=== PATIENT | male | born 1965 | race African-American/Black ===

== ENCOUNTER 2016-11-13 15:31 | Inpatient (IN) | payer OTHER ==
[2016-11-13 17:11] VITALS: BMI 23.6
--- NOTE | 2016-11-13 18:57 | HP ---
CIWA Score - CIWA Score Nausea/Vomitin-Mild Nausea/No Vomiting Muscle Tremors: 4-Moderate,w/Arms Extend Anxiety: 4-Mod. Anxious/Guarded Agitation: 3 Paroxysmal Sweats: 1-Minimal Palms Moist Orientation: 0-Oriented Tacttile Disturbances: 0-None Auditory Disturbances: 0-None Visual Disturbances: 0-None Headache: 0-None Present CIWA-Ar Total Score: 13 Admission ROS [facility] - HPI Chief Complaint: WITHDRAWAL SX Allergies/Adverse Reactions: Allergies Allergy/AdvReac Type Severity Reaction Status Date / Time Fish Containing Products Allergy Intermediate Hives Verified 11/13/16 17:39 No Known Drug Allergies Allergy Verified 11/13/16 18:14 shellfish Allergy Severe Hives Uncoded 11/13/16 17:39 NUTS Allergy Intermediate Hives Uncoded 11/13/16 17:39 History of Present Illness: 51 YEARS OLD MALE WITH LONG HISTORY OF ALCOHOL NICOTINE DEPENDENCE DENIES MEDICAL ISSUE HAS DEPRESSION IS ADMITTED TO DETOX Exam Limitations: No Limitations - Ebola screening Have you traveled outside of the country in the last 21 days: No Have you had contact with anyone from an Ebola affected area: No Have you been sick,other than usual withdrawal symptoms: No Do you have a fever: No - Review of Systems Constitutional: Chills, Loss of Appetite, Changes in sleep, Unintentional Wgt. Loss, Unexplained wgt Loss EENT: reports: No Symptoms Reported Respiratory: reports: No Symptoms reported Cardiac: reports: No Symptoms Reported GI: reports: No Symptoms Reported, Nausea, Poor Appetite, Poor Fluid Intake, Abdominal cramping : reports: No Symptoms Reported Musculoskeletal: reports: Back Pain, Joint Pain, Muscle Pain, Neck Pain Integumentary: reports: No Symptoms Reported Neuro: reports: Tremors Endocrine: reports: No Symptoms Reported Hematology: reports: No Symptoms Reported Psychiatric: reports: Judgement Intact, Orientated x3, Depressed Other Systems: Reviewed and Negative Patient History - Patient Medical History Hx Anemia: No Hx Asthma: No Hx Chronic Obstructive Pulmonary Disease (COPD): No Hx Cancer: No Hx Cardiac Disorders: No Hx Congestive Heart Failure: No Hx Hypertension: No Hx Hypercholesterolemia: No Hx Pacemaker: No HX Cerebrovascular Accident: No Hx Seizures: No Hx Dementia: No Hx Diabetes: No Hx Gastrointestinal Disorders: No Hx Liver Disease: Yes Hx Genitourinary Disorders: No Hx Sexually Transmitted Disorders: No Hx Renal Disease (ESRD): No Hx Thyroid Disease: No Hx Human Immunodeficiency Virus (HIV): No Hx Hepatitis C: Yes (needs treatment) Hx Depression: Yes Hx Suicide Attempt: No Hx Bipolar Disorder: No Hx Schizophrenia: No - Patient Surgical History Past Surgical History: Yes Hx Neurologic Surgery: No Hx Cataract Extraction: No Hx Cardiac Surgery: No Hx Lung Surgery: No Hx Breast Surgery: No Hx Breast Biopsy: No Hx Abdominal Surgery: No Hx Appendectomy: No Hx Cholecystectomy: Yes (2011) Hx Genitourinary Surgery: No Hx Orthopedic Surgery: No Other Surgical History: INGUINAL HERNIA REPAIR- 2011 Anesthesia Reaction: No - PPD History Previous Implant?: Yes Documented Results: Negative w/proof Implanted On Prior [facility] Admission?: Yes Date: 08/12/16 Results: 0 mm PPD to be Administered?: No - Smoking Cessation Smoking history: Current every day smoker Have you smoked in the past 12 months: Yes Aproximately how many cigarettes per day: 40 Cigars Per Day: 0 Hx Chewing Tobacco Use: No Initiated information on smoking cessation: Yes 'Breaking Loose' booklet given: 11/13/16 - Substance & Tx. History Hx Alcohol Use: Yes Hx Substance Use: Yes Substance Use Type: Alcohol, Cocaine, Opiates Hx Substance Use Treatment: Yes (08/10-08/15/16 [place] - Substances Abused Alcohol Route: Oral Frequency: Daily Amount used: vodka 2 pints Age of first use: 17 Date of Last Use: 11/12/16 Cocaine Route: Smoking Frequency: Daily Amount used: $100 Age of first use: 17 Date of Last Use: 11/13/16 Family Disease History - Family Disease History Family Disease History: Other: Father (alcohlic) Admission Physical Exam S - Vital Signs Vital Signs: Vital Signs - 24 hr 11/13/16 17:04 Temperature 96.1 F L Pulse Rate 63 Respiratory 18 Rate Blood Pressure 114/68 - Physical General Appearance: Yes: Appropriately Dressed, Mild Distress, Thin, Tremorous, Irritable, Sweating, Anxious HEENTM: Yes: Hearing grossly Normal, Normal ENT Inspection, Normocephalic, Normal Voice Respiratory: Yes: Chest Non-Tender, Lungs Clear, Normal Breath Sounds, No Respiratory Distress, No Accessory Muscle Use Neck: Yes: Supple, Trachea in good position Breast: Yes: Breasts Symetrical Cardiology: Yes: Regular Rhythm, S1, S2, Bradycardia Abdominal: Yes: Non Tender, Soft Genitourinary: Yes: Within Normal Limits Back: Yes: Normal Inspection Musculoskeletal: Yes: full range of Motion, Gait Steady Extremities: Yes: Normal Range of Motion, Non-Tender, Tremors Neurological: Yes: Fully Oriented, Alert, Motor Strength 5/5, Normal Response, Depressed Affect Integumentary: Yes: Warm Lymphatic: Yes: Within Normal Limits - Diagnostic (1) Alcohol dependence with uncomplicated withdrawal Current Visit: Yes Status: Acute (2) History of hepatitis C Current Visit: Yes Status: Chronic (3) Encounter for monitoring Suboxone maintenance therapy Current Visit: Yes Status: Chronic Comment: 24-6 SL DAILY, VERIFIED BY NURSE, LAST DOSE 11/12/16 Cleared for Admission [facility] - Detox or Rehab [facility] Level of Care: Medically Managed Detox Regimen/Protocol: Librium [facility] Breath Alcohol Content Breath Alcohol Content: 0 Urine Drug Screen - Results Drug Screen Negative: No Urine Drug Screen Results: ANDI-Cocaine
[2016-11-13] MEDS ORDERED: MAGNESIUM HYDROX 2400MG/30ML ORAL SUSPENSION 30 ML CUP PO PRN (19:01)
[2016-11-13] MEDS ORDERED: NICOTINE POLACRILEX 4 MG GUM BC PRN (19:01)
[2016-11-13] MEDS ORDERED: LOPERAMIDE HCL 2 MG CAPSULE PO PRN (19:01)
[2016-11-13] MEDS ORDERED: P-EPHED 60MG/TRIPROLIDI 2.5MG TABLET PO PRN (19:01)
[2016-11-13] MEDS ORDERED: MAG HYDROX/AL HYDROX/SIMETH 30 ML UNIT-DOSE CUP PO PRN (19:01)
[2016-11-13] MEDS ORDERED: MENTHOL/PHENOL 1 EACH UD MM PRN (19:01)
[2016-11-13] MEDS ORDERED: MAGNESIUM CITRATE 300 ML BOTTLE PO PRN (19:01)
[2016-11-13] MEDS ORDERED: guaiFENesin/D-METHORPHAN HB 10 ML UNIT-DOSE CUPS PO PRN (19:01)
[2016-11-13] MEDS ORDERED: diphenhydrAMINE HCL 50 MG CAPSULE PO PRN (19:01)
[2016-11-13] MEDS ORDERED: hydrOXYzine PAMOATE 50 MG CAPSULE (FP) PO PRN (19:01)
[2016-11-13] MEDS ORDERED: chlordiazePOXIDE HCL 25 MG CAPSULE PO PRN (19:01)
[2016-11-13] MEDS ORDERED: ACETAMINOPHEN 325 MG TABLET (FP) PO PRN (19:01)
[2016-11-13] MEDS: BUPRENORPHINE/NALOXONE 8 MG/2 MG FILM PACKET SL SCH (20:23)
[2016-11-13] MEDS: chlordiazePOXIDE HCL 25 MG CAPSULE PO SCH (22:55)
[2016-11-13] MEDS: THIAMINE HCL 100 MG TABLET (FP) PO SCH (22:55)
[2016-11-14] MEDS: chlordiazePOXIDE HCL 25 MG CAPSULE PO SCH ×4 (05:39→22:07)
--- NOTE | 2016-11-14 09:46 | EKG ---
Test Reason : Blood Pressure : / mmHG Vent. Rate : 064 BPM Atrial Rate : 064 BPM P-R Int : 158 ms QRS Dur : 084 ms QT Int : 406 ms P-R-T Axes : 053 084 046 degrees QTc Int : 418 [address]AL SINUS RHYTHM ST ELEVATION, CONSIDER EARLY REPOLARIZATION WHEN COMPARED WITH ECG OF 10-AUG-2016 17:11, QT HAS SHORTENED Confirmed by LUIS JARA MD ([id number]) on 11/14/2016 9:46:03 AM Referred By: Confirmed By:LUIS JARA MD
--- NOTE | 2016-11-14 09:53 | CONSULT ---
[facility] Psychiatric Consult - Data Date of interview: 11/14/16 Admission source: [facility] Identifying data: Another admission to [facility] this 51 y/o AA male seeking detox treatment on for opioid,alcohol and cocaine dependence.Patient is single,a father of one,homeless,unemployed and supported on food stamps. Substance Abuse History: - Smoking Cessation. Smoking history: Current every day smoker. Have you smoked in the past 12 months: Yes. Aproximately how many cigarettes per day: 40. Cigars Per Day: 0. Hx Chewing Tobacco Use: No. Initiated information on smoking cessation: Yes. 'Breaking Loose' booklet given : 11/13/16. - Substance & Tx. History. Hx Alcohol Use: Yes. Hx Substance Use : Yes. Substance Use Type: Alcohol, Cocaine, Opiates. Hx Substance Use Treatment: Yes (08/10-08/15/16 [place]). - Substances Abused. Alcohol. Route : Oral. Frequency: Daily. Amount used: vodka 2 pints. Age of first use: 17. Date of Last Use: 11/12/16. Cocaine. Route: Smoking. Frequency: Daily. Amount used: $100. Age of first use: 17. Date of Last Use: 11/13/16 Medical History: Bronchial asthma,hepatitis C,cirrhosis of liver and a history of inguinal herniorraphy. Psychiatric History: Patient denies. Physical/Sexual Abuse/Trauma History: Patient denies.Records indicate that Mr Alonso is currenetly on buprenorphine maintenance. Additional Comment: Urine Drug Screen Results: ANDI-Cocaine.Noted. Mental Status Exam - Mental Status Exam Alert and Oriented to: Time, Place, Person Cognitive Function: Grossly Intact Patient Appearance: Unkempt, Disheveled Mood: Nervous, Withdrawn, Irritable Affect: Mood Congruent Patient Behavior: Fatigued, Uncooperative Speech Pattern: Clear Voice Loudness: Normal Thought Process: Goal Oriented Thought Disorder: Not Present Hallucinations: Denies Suicidal Ideation: Denies Homicidal Ideation: Denies Insight/Judgement: Poor Sleep: Poorly, Difficulty falling asleep Appetite: Good (noted empty foodtray at bedside) Muscle strength/Tone: Normal Gait/Station: Normal Psychiatric Findings - Problem List ([place] 1, 2,3) (1) Alcohol dependence with uncomplicated withdrawal Current Visit: Yes Status: Acute (2) Cocaine dependence, uncomplicated Current Visit: Yes Status: Acute (3) Opioid dependence on agonist therapy Current Visit: Yes Status: Acute (4) Nicotine dependence Current Visit: Yes Status: Acute (5) History of hepatitis C Current Visit: Yes Status: Chronic (6) History of asthma Current Visit: Yes Status: Chronic - Initial Treatment Plan Initial Treatment Plan: Psychoeducation.Detoxification.Observation.
[2016-11-14] MEDS: PRENATAL VITAMINS W/ FOLIC ACID TABLET (FP) PO SCH (10:03)
[2016-11-14] MEDS: NICOTINE 21 MG/24 HOURS TOPICAL PATCH TD SCH (10:03)
[2016-11-14] MEDS: BUPRENORPHINE/NALOXONE 8 MG/2 MG FILM PACKET SL SCH (10:03)
[2016-11-14 10:05] LABS: MCH 25.8 pg (25.7-33.7); MCHC 31.7 g/dl (32.0-35.9); MEAN CELL VOLUME 81.4 fl (80-96); MEAN PLT VOLUME 9.4 fl (7.5-11.1); PLATELET COUNT 170 K/MM3 (134-434); RDW 15.4 % (11.9-15.9); WHITE BLOOD COUNT 4.3 K/mm3 (4.0-10.0)
[2016-11-14 10:52] LABS: ALBUMIN 2.8 g/dl (3.4-5.0); ALK PHOS 104 U/L (45-117); ANION GAP 7 (8-16); BILIRUBIN,TOTAL 0.6 mg/dL (0.2-1.0); CALCIUM 7.9 mg/dL (8.5-10.1); CO2 29 mmol/L (21-32); GLUCOSE,RANDOM 87 mg/dL (74-106); SGOT/AST 51 U/L (15-37); SGPT/ALT 75 U/L (12-78); TOT PROT 5.9 g/dl (6.4-8.2)
--- NOTE | 2016-11-14 11:58 | PN ---
[facility] CIWA - CIWA Score Nausea/Vomitin-Mild Nausea/No Vomiting Muscle Tremors: 2 Anxiety: 3 Agitation: 1-Slight > Activity Paroxysmal Sweats: 3 Orientation: 2-Disoriented Date<2 days Tacttile Disturbances: 2-Mild Itch/Numbness/Burn Auditory Disturbances: 2-Mild Harshness/Frighten Visual Disturbances: 0-None Headache: 0-None Present CIWA-Ar Total Score: 16 S Progress Note (SOAP) Subjective: Lower Back Ache, Sweating, Fatigue. Objective: PT. A & O X 2 (DISORIENTED ABOUT DAY / DATE). PT. OBSERVED AMBULATING ON UNIT. NO ACUTE DISTRESS. 11/14/16 11:56 Vital Signs Temperature 97.0 F L 11/14/16 09:38 Pulse Rate 69 11/14/16 09:38 Respiratory Rate 18 11/14/16 09:38 Blood Pressure 106/67 11/14/16 09:38 O2 Sat by Pulse Oximetry (%) Laboratory Tests 11/14/16 11/14/16 07:00 07:00 WBC 4.3 RBC 4.68 Hgb 12.1 Hct 38.1 MCV 81.4 MCHC 31.7 L RDW 15.4 Plt Count 170 MPV 9.4 Sodium 143 Potassium 4.2 Chloride 107 Carbon Dioxide 29 Anion Gap 7 L BUN 15 D Creatinine 1.0 Creat Clearance w eGFR > 60 Random Glucose 87 Calcium 7.9 L Total Bilirubin 0.6 AST 51 H D ALT 75 D Alkaline Phosphatase 104 Total Protein 5.9 L Albumin 2.8 L LABS NOTED. Assessment: 11/14/16 11:57 WITHDRAWAL SYMPTOMS. Plan: CONTINUE DETOX.
[2016-11-14 12:43] LABS: HIV 1 & 2 AB NEGATIVE; HIV 1 AGp24 NEGATIVE
[2016-11-14 16:59] LABS: URINE APPEARANCE CLEAR; URINE BILIRUBIN NEGATIVE (NEGATIVE); URINE BLOOD NEGATIVE (NEGATIVE); URINE COLOR YELLOW; URINE GLUCOSE (UA) NEGATIVE (NEGATIVE); URINE KETONE NEGATIVE (NEGATIVE); URINE LEUK ESTERASE NEGATIVE (NEGATIVE); URINE NITRITE NEGATIVE (NEGATIVE); URINE PROTEIN NEGATIVE (NEGATIVE); URINE UROBILINOGEN NEGATIVE E.U./dl (0.2-1.0)
[2016-11-14] MEDS: THIAMINE HCL 100 MG TABLET (FP) PO SCH (22:07)
[2016-11-15] MEDS: chlordiazePOXIDE HCL 25 MG CAPSULE PO SCH ×3 (05:45→17:14)
[2016-11-15] MEDS: IBUPROFEN 400 MG TABLET (FP) PO PRN ×2 (07:44→19:34)
[2016-11-15] MEDS: PRENATAL VITAMINS W/ FOLIC ACID TABLET (FP) PO SCH (10:44)
[2016-11-15] MEDS: BUPRENORPHINE/NALOXONE 8 MG/2 MG FILM PACKET SL SCH (10:44)
[2016-11-15] MEDS: NICOTINE 21 MG/24 HOURS TOPICAL PATCH TD SCH (10:44)
--- NOTE | 2016-11-15 13:38 | PN ---
[facility] CIWA - CIWA Score Nausea/Vomitin-No Nausea/No Vomiting Muscle Tremors: 4-Moderate,w/Arms Extend Anxiety: 2 Agitation: 0-Normal Activity Paroxysmal Sweats: 3 Orientation: 2-Disoriented Date<2 days Tacttile Disturbances: 2-Mild Itch/Numbness/Burn Auditory Disturbances: 2-Mild Harshness/Frighten Visual Disturbances: 0-None Headache: 0-None Present CIWA-Ar Total Score: 15 S Progress Note (SOAP) Subjective: Body Aches, Sweating, Tremors. Objective: PT. A & O X 2 (DISORIENTED ABOUT DAY / DATE). NO ACUTE DISTRESS. 11/15/16 13:36 Vital Signs Temperature 98.7 F 11/15/16 09:00 Pulse Rate 72 11/15/16 09:00 Respiratory Rate 18 11/15/16 09:00 Blood Pressure 111/63 11/15/16 09:00 O2 Sat by Pulse Oximetry (%) Laboratory Tests 11/14/16 11/14/16 11/14/16 07:00 07:00 07:00 WBC 4.3 RBC 4.68 Hgb 12.1 Hct 38.1 MCV 81.4 MCHC 31.7 L RDW 15.4 Plt Count 170 MPV 9.4 Sodium 143 Potassium 4.2 Chloride 107 Carbon Dioxide 29 Anion Gap 7 L BUN 15 D Creatinine 1.0 Creat Clearance w eGFR > 60 Random Glucose 87 Calcium 7.9 L Total Bilirubin 0.6 AST 51 H D ALT 75 D Alkaline Phosphatase 104 Total Protein 5.9 L Albumin 2.8 L Urine Color Urine Appearance Urine pH Ur Specific [place] Urine Protein Urine Glucose (UA) Urine Ketones Urine Blood Urine Nitrite Urine Bilirubin Urine Urobilinogen Ur Leukocyte Esterase RPR Titer HIV 1&2 Antibody Screen Negative HIV P24 Antigen Negative 11/14/16 11/14/16 07:00 10:30 WBC RBC Hgb Hct MCV MCHC RDW Plt Count MPV Sodium Potassium Chloride Carbon Dioxide Anion Gap BUN Creatinine Creat Clearance w eGFR Random Glucose Calcium Total Bilirubin AST ALT Alkaline Phosphatase Total Protein Albumin Urine Color Yellow Urine Appearance Clear Urine pH 5.0 Ur Specific [place] 1.025 Urine Protein Negative Urine Glucose (UA) Negative Urine Ketones Negative Urine Blood Negative Urine Nitrite Negative Urine Bilirubin Negative Urine Urobilinogen Negative Ur Leukocyte Esterase Negative RPR Titer Nonreactive HIV 1&2 Antibody Screen HIV P24 Antigen LABS NOTED. Assessment: 11/15/16 13:37 WITHDRAWAL SYMPTOMS. Plan: CONTINUE DETOX.
[2016-11-15] MEDS: chlordiazePOXIDE 5 MG CAPSULE PO SCH (22:03)
[2016-11-15] MEDS: THIAMINE HCL 100 MG TABLET (FP) PO SCH (22:03)
[2016-11-16] MEDS: chlordiazePOXIDE 5 MG CAPSULE PO SCH ×3 (05:20→17:45)
[2016-11-16] MEDS: PRENATAL VITAMINS W/ FOLIC ACID TABLET (FP) PO SCH (10:02)
[2016-11-16] MEDS: BUPRENORPHINE/NALOXONE 8 MG/2 MG FILM PACKET SL SCH (10:03)
[2016-11-16] MEDS: NICOTINE 21 MG/24 HOURS TOPICAL PATCH TD SCH (10:03)
--- NOTE | 2016-11-16 12:37 | PN ---
[facility] Progress Note (SOAP) Subjective: Anxious, sweating, interrupted sleep Objective: 11/16/16 12:36 Last Vital Signs Temp Pulse Resp BP Pulse Ox 97.2 F L 72 18 130/77 11/16/16 09:02 11/16/16 09:02 11/16/16 09:02 11/16/16 09:02 Laboratory Tests 11/14/16 11/14/16 11/14/16 07:00 07:00 07:00 WBC 4.3 RBC 4.68 Hgb 12.1 Hct 38.1 MCV 81.4 MCHC 31.7 L RDW 15.4 Plt Count 170 MPV 9.4 Sodium 143 Potassium 4.2 Chloride 107 Carbon Dioxide 29 Anion Gap 7 L BUN 15 D Creatinine 1.0 Creat Clearance w eGFR > 60 Random Glucose 87 Calcium 7.9 L Total Bilirubin 0.6 AST 51 H D ALT 75 D Alkaline Phosphatase 104 Total Protein 5.9 L Albumin 2.8 L Urine Color Urine Appearance Urine pH Ur Specific [place] Urine Protein Urine Glucose (UA) Urine Ketones Urine Blood Urine Nitrite Urine Bilirubin Urine Urobilinogen Ur Leukocyte Esterase RPR Titer HIV 1&2 Antibody Screen Negative HIV P24 Antigen Negative 11/14/16 11/14/16 07:00 10:30 WBC RBC Hgb Hct MCV MCHC RDW Plt Count MPV Sodium Potassium Chloride Carbon Dioxide Anion Gap BUN Creatinine Creat Clearance w eGFR Random Glucose Calcium Total Bilirubin AST ALT Alkaline Phosphatase Total Protein Albumin Urine Color Yellow Urine Appearance Clear Urine pH 5.0 Ur Specific [place] 1.025 Urine Protein Negative Urine Glucose (UA) Negative Urine Ketones Negative Urine Blood Negative Urine Nitrite Negative Urine Bilirubin Negative Urine Urobilinogen Negative Ur Leukocyte Esterase Negative RPR Titer Nonreactive HIV 1&2 Antibody Screen HIV P24 Antigen Labs noted Assessment: 11/16/16 12:36 Withdrawal symptoms Plan: Continue detox
[2016-11-16] MEDS: THIAMINE HCL 100 MG TABLET (FP) PO SCH (22:08)
[2016-11-16] MEDS: chlordiazePOXIDE HCL 10 MG CAPSULE PO SCH (22:08)
[2016-11-17] MEDS: chlordiazePOXIDE HCL 10 MG CAPSULE PO SCH ×3 (05:46→17:23)
[2016-11-17] MEDS: PRENATAL VITAMINS W/ FOLIC ACID TABLET (FP) PO SCH (09:30)
[2016-11-17] MEDS: NICOTINE 21 MG/24 HOURS TOPICAL PATCH TD SCH (09:32)
[2016-11-17] MEDS: BUPRENORPHINE/NALOXONE 8 MG/2 MG FILM PACKET SL SCH (09:36)
--- NOTE | 2016-11-17 12:59 | PN ---
[facility] Progress Note (SOAP) Subjective: Sweating,interrupted sleep Objective: 11/17/16 12:58 Vital Signs - 8 hr 11/17/16 11/17/16 06:22 09:44 Temperature 98.6 F 97.2 F L Pulse Rate 79 80 Respiratory 18 18 Rate Blood Pressure 118/69 117/68 Laboratory Last Values WBC 4.3 K/mm3 (4.0-10.0) 11/14/16 07:00 RBC 4.68 M/mm3 (4.00-5.60) 11/14/16 07:00 Hgb 12.1 GM/dL (11.7-16.9) 11/14/16 07:00 Hct 38.1 % (35.4-49) 11/14/16 07:00 MCV 81.4 fl (80-96) 11/14/16 07:00 MCHC 31.7 g/dl (32.0-35.9) L 11/14/16 07:00 RDW 15.4 % (11.9-15.9) 11/14/16 07:00 Plt Count 170 K/MM3 (134-434) 11/14/16 07:00 MPV 9.4 fl (7.5-11.1) 11/14/16 07:00 Sodium 143 mmol/L (136-145) 11/14/16 07:00 Potassium 4.2 mmol/L (3.5-5.1) 11/14/16 07:00 Chloride 107 mmol/L (98-107) 11/14/16 07:00 Carbon Dioxide 29 mmol/L (21-32) 11/14/16 07:00 Anion Gap 7 (8-16) L 11/14/16 07:00 BUN 15 mg/dL (7-18) D 11/14/16 07:00 Creatinine 1.0 mg/dL (0.7-1.3) 11/14/16 07:00 Creat Clearance w eGFR > 60 (>60) 11/14/16 07:00 Random Glucose 87 mg/dL (74-106) 11/14/16 07:00 Calcium 7.9 mg/dL (8.5-10.1) L 11/14/16 07:00 Total Bilirubin 0.6 mg/dL (0.2-1.0) 11/14/16 07:00 AST 51 U/L (15-37) H D 11/14/16 07:00 ALT 75 U/L (12-78) D 11/14/16 07:00 Alkaline Phosphatase 104 U/L (45-117) 11/14/16 07:00 Total Protein 5.9 g/dl (6.4-8.2) L 11/14/16 07:00 Albumin 2.8 g/dl (3.4-5.0) L 11/14/16 07:00 Urine Color Yellow 11/14/16 10:30 Urine Appearance Clear 11/14/16 10:30 Urine pH 5.0 (5.0-8.0) 11/14/16 10:30 Ur Specific [place] 1.025 (1.005-1.025) 11/14/16 10:30 Urine Protein Negative (NEGATIVE) 11/14/16 10:30 Urine Glucose (UA) Negative (NEGATIVE) 11/14/16 10:30 Urine Ketones Negative (NEGATIVE) 11/14/16 10:30 Urine Blood Negative (NEGATIVE) 11/14/16 10:30 Urine Nitrite Negative (NEGATIVE) 11/14/16 10:30 Urine Bilirubin Negative (NEGATIVE) 11/14/16 10:30 Urine Urobilinogen Negative E.U./dl (0.2-1.0) 11/14/16 10:30 Ur Leukocyte Esterase Negative (NEGATIVE) 11/14/16 10:30 RPR Titer Nonreactive (NONREACTIVE) 11/14/16 07:00 HIV 1&2 Antibody Screen Negative 11/14/16 07:00 HIV P24 Antigen Negative 11/14/16 07:00 labs noted Assessment: 11/17/16 12:59 Withdrawal sx. Plan: Continue detox
[2016-11-17] MEDS: THIAMINE HCL 100 MG TABLET (FP) PO SCH (22:13)
[2016-11-18 06:21] VITALS: TEMP 98.6
[2016-11-18] MEDS: BUPRENORPHINE/NALOXONE 8 MG/2 MG FILM PACKET SL SCH (09:14)
[2016-11-18] MEDS: PRENATAL VITAMINS W/ FOLIC ACID TABLET (FP) PO SCH (09:15)
[2016-11-18] MEDS: NICOTINE 21 MG/24 HOURS TOPICAL PATCH TD SCH (09:15)
[2016-11-18 09:16] VITALS: BP 107/71; PULSE 78
--- NOTE | 2016-11-18 10:46 | DS ---
[facility] Discharge Summary Admission Date: 11/13/16 Discharge Date: 11/18/16 - History Present History: Alcohol Dependence, Cocaine Dependence, MMTP Pertinent Past History: Asthma Hep C - Physical Exam Results Vital Signs: Vital Signs Temperature 98.6 F 11/18/16 06:20 Pulse Rate 78 11/18/16 09:15 Respiratory Rate 18 11/18/16 09:15 Blood Pressure 107/71 11/18/16 09:15 O2 Sat by Pulse Oximetry (%) Pertinent Admission Physical Exam Findings: Withdrawal sx. Laboratory Last Values WBC 4.3 K/mm3 (4.0-10.0) 11/14/16 07:00 RBC 4.68 M/mm3 (4.00-5.60) 11/14/16 07:00 Hgb 12.1 GM/dL (11.7-16.9) 11/14/16 07:00 Hct 38.1 % (35.4-49) 11/14/16 07:00 MCV 81.4 fl (80-96) 11/14/16 07:00 MCHC 31.7 g/dl (32.0-35.9) L 11/14/16 07:00 RDW 15.4 % (11.9-15.9) 11/14/16 07:00 Plt Count 170 K/MM3 (134-434) 11/14/16 07:00 MPV 9.4 fl (7.5-11.1) 11/14/16 07:00 Sodium 143 mmol/L (136-145) 11/14/16 07:00 Potassium 4.2 mmol/L (3.5-5.1) 11/14/16 07:00 Chloride 107 mmol/L (98-107) 11/14/16 07:00 Carbon Dioxide 29 mmol/L (21-32) 11/14/16 07:00 Anion Gap 7 (8-16) L 11/14/16 07:00 BUN 15 mg/dL (7-18) D 11/14/16 07:00 Creatinine 1.0 mg/dL (0.7-1.3) 11/14/16 07:00 Creat Clearance w eGFR > 60 (>60) 11/14/16 07:00 Random Glucose 87 mg/dL (74-106) 11/14/16 07:00 Calcium 7.9 mg/dL (8.5-10.1) L 11/14/16 07:00 Total Bilirubin 0.6 mg/dL (0.2-1.0) 11/14/16 07:00 AST 51 U/L (15-37) H D 11/14/16 07:00 ALT 75 U/L (12-78) D 11/14/16 07:00 Alkaline Phosphatase 104 U/L (45-117) 11/14/16 07:00 Total Protein 5.9 g/dl (6.4-8.2) L 11/14/16 07:00 Albumin 2.8 g/dl (3.4-5.0) L 11/14/16 07:00 Urine Color Yellow 11/14/16 10:30 Urine Appearance Clear 11/14/16 10:30 Urine pH 5.0 (5.0-8.0) 11/14/16 10:30 Ur Specific [place] 1.025 (1.005-1.025) 11/14/16 10:30 Urine Protein Negative (NEGATIVE) 11/14/16 10:30 Urine Glucose (UA) Negative (NEGATIVE) 11/14/16 10:30 Urine Ketones Negative (NEGATIVE) 11/14/16 10:30 Urine Blood Negative (NEGATIVE) 11/14/16 10:30 Urine Nitrite Negative (NEGATIVE) 11/14/16 10:30 Urine Bilirubin Negative (NEGATIVE) 11/14/16 10:30 Urine Urobilinogen Negative E.U./dl (0.2-1.0) 11/14/16 10:30 Ur Leukocyte Esterase Negative (NEGATIVE) 11/14/16 10:30 RPR Titer Nonreactive (NONREACTIVE) 11/14/16 07:00 HIV 1&2 Antibody Screen Negative 11/14/16 07:00 HIV P24 Antigen Negative 11/14/16 07:00 labs noted - Treatment Hospital Course: Detox Protocol Followed, Detoxed Safely, Responded well, Discharged Condition Good, Rehab Referral Accepted Patient has Accepted a Rehab Referral to: [facility] - Medication Discharge Medications: Ambulatory Orders Buprenorphine/Naloxone [Suboxone 8Mg/2Mg Sl Film -] 24 mg SL DAILY 08/11/16 - Diagnosis (1) Alcohol dependence with uncomplicated withdrawal Current Visit: Yes Status: Acute (2) Cocaine dependence, uncomplicated Current Visit: Yes Status: Acute (3) Nicotine dependence Current Visit: Yes Status: Acute (4) History of asthma Current Visit: Yes Status: Chronic (5) History of hepatitis C Current Visit: Yes Status: Chronic (6) Opioid dependence on agonist therapy Current Visit: Yes Status: Acute - AMA Did Patient Leave Against Medical Advice: No
== END 2016-11-18 11:10 | disposition home or self-care (01) | DRG 773 ==
LOC: YASAS 15:31 → Y3N 18:06
PROVIDERS: ADMIT Internal Medicine; ATTEND Internal Medicine
PROC: HZ2ZZZZ Detoxification Services for Substance Abuse Treatment (ICD-10-PCS; principal; 2016-11-13)
DX: F10.230 Alcohol dependence with withdrawal, uncomplicated (principal); F11.20 Opioid dependence, uncomplicated; F14.20 Cocaine dependence, uncomplicated; F17.210 Nicotine dependence, cigarettes, uncomplicated; B18.2 Chronic viral hepatitis C; R00.1 Bradycardia, unspecified; K74.60 Unspecified cirrhosis of liver; Z87.09 Personal history of other diseases of the respiratory system; Z59.0 Homelessness
CPT/HCPCS: 36415; 80053; 81003; 85027; 86593; 87389; 93005; 93010

== ENCOUNTER 2017-02-12 20:05 | Inpatient (IN) | payer OTHER ==
[2017-02-12 21:20] VITALS: BMI 23.0
--- NOTE | 2017-02-12 22:57 | HP ---
CIWA Score - CIWA Score Nausea/Vomitin-Mild Nausea/No Vomiting Muscle Tremors: 4-Moderate,w/Arms Extend Anxiety: 4-Mod. Anxious/Guarded Agitation: 4-Moderately Restless Paroxysmal Sweats: 1-Minimal Palms Moist Orientation: 0-Oriented Tacttile Disturbances: 0-None Auditory Disturbances: 0-None Visual Disturbances: 0-None Headache: 0-None Present CIWA-Ar Total Score: 14 Admission ROS S - HPI Chief Complaint: withdrawal sx Allergies/Adverse Reactions: Allergies Allergy/AdvReac Type Severity Reaction Status Date / Time Fish Containing Products Allergy Intermediate Hives Verified 11/13/16 17:39 No Known Drug Allergies Allergy Verified 11/13/16 18:14 shellfish Allergy Severe Hives Uncoded 11/13/16 17:39 NUTS Allergy Intermediate Hives Uncoded 11/13/16 17:39 History of Present Illness: 51 years old male with long history of alcohol nicotine dependence has asthma hepatitis c denies mental issue is admitted to detox Exam Limitations: No Limitations - Ebola screening Have you traveled outside of the country in the last 21 days: No Have you had contact with anyone from an Ebola affected area: No Have you been sick,other than usual withdrawal symptoms: No Do you have a fever: No - Review of Systems Constitutional: Loss of Appetite, Changes in sleep, Unintentional Wgt. Loss, Unexplained wgt Loss EENT: reports: No Symptoms Reported Respiratory: reports: No Symptoms reported Cardiac: reports: No Symptoms Reported GI: reports: Nausea, Poor Appetite, Poor Fluid Intake, Abdominal cramping : reports: No Symptoms Reported Musculoskeletal: reports: No Symptoms Reported Integumentary: reports: No Symptoms Reported Neuro: reports: Tremors Endocrine: reports: No Symptoms Reported Hematology: reports: No Symptoms Reported Psychiatric: reports: Judgement Intact, Mood/Affect Appropiate, Orientated x3 Other Systems: Reviewed and Negative Patient History - Patient Medical History Hx Anemia: No Hx Asthma: No Hx Chronic Obstructive Pulmonary Disease (COPD): No Hx Cancer: No Hx Cardiac Disorders: No Hx Congestive Heart Failure: No Hx Hypertension: No Hx Hypercholesterolemia: No Hx Pacemaker: No HX Cerebrovascular Accident: No Hx Seizures: No Hx Dementia: No Hx Diabetes: No Hx Gastrointestinal Disorders: No Hx Liver Disease: Yes Hx Genitourinary Disorders: No Hx Sexually Transmitted Disorders: No Hx Renal Disease (ESRD): No Hx Thyroid Disease: No Hx Human Immunodeficiency Virus (HIV): No Hx Hepatitis C: Yes (needs treatment) Hx Depression: Yes Hx Suicide Attempt: No Hx Bipolar Disorder: No Hx Schizophrenia: No - Patient Surgical History Past Surgical History: Yes Hx Neurologic Surgery: No Hx Cataract Extraction: No Hx Cardiac Surgery: No Hx Lung Surgery: No Hx Breast Surgery: No Hx Breast Biopsy: No Hx Abdominal Surgery: No Hx Appendectomy: No Hx Cholecystectomy: Yes (2011) Hx Genitourinary Surgery: No Hx Orthopedic Surgery: No Other Surgical History: INGUINAL HERNIA REPAIR- 2011 Anesthesia Reaction: No - PPD History Previous Implant?: Yes Documented Results: Negative w/proof Implanted On Prior [facility] Admission?: Yes Date: 08/12/16 Results: 0 mm PPD to be Administered?: No - Smoking Cessation Smoking history: Current every day smoker Have you smoked in the past 12 months: Yes Aproximately how many cigarettes per day: 40 Cigars Per Day: 0 Hx Chewing Tobacco Use: No Initiated information on smoking cessation: Yes 'Breaking Loose' booklet given: 02/12/17 - Substance & Tx. History Hx Alcohol Use: Yes Hx Substance Use: Yes Substance Use Type: Alcohol, Cocaine Hx Substance Use Treatment: Yes (11/13-11/18/16 [facility] - Substances Abused Alcohol Route: Oral Frequency: Daily Amount used: 1/2 volka Age of first use: 14 Date of Last Use: 02/11/17 Family Disease History - Family Disease History Family Disease History: Other: Father (alcohlic no contact), Mother (no contact) Other Family History: only child Admission Physical Exam BHS - Vital Signs Vital Signs: Vital Signs - 24 hr 02/12/17 21:18 Temperature 97.8 F Pulse Rate 60 Respiratory 18 Rate Blood Pressure 115/75 - Physical General Appearance: Yes: Appropriately Dressed, Mild Distress, Thin, Tremorous, Irritable, Sweating, Anxious HEENTM: Yes: Hearing grossly Normal, Normal ENT Inspection, Normocephalic, Normal Voice Respiratory: Yes: Chest Non-Tender, Lungs Clear, Normal Breath Sounds, No Respiratory Distress, No Accessory Muscle Use Neck: Yes: Supple, Trachea in good position Breast: Yes: Breasts Symetrical Cardiology: Yes: Regular Rhythm, S1, S2, Bradycardia Abdominal: Yes: Non Tender, Soft Genitourinary: Yes: Within Normal Limits Back: Yes: Normal Inspection Musculoskeletal: Yes: full range of Motion, Gait Steady Extremities: Yes: Normal Inspection, Normal Range of Motion, Non-Tender, Tremors Neurological: Yes: Fully Oriented, Alert, Motor Strength 5/5, Normal Response, Depressed Affect Integumentary: Yes: Warm Lymphatic: Yes: Within Normal Limits - Diagnostic (1) Alcohol dependence with uncomplicated withdrawal Current Visit: Yes Status: Acute (2) Cocaine dependence, uncomplicated Current Visit: Yes Status: Chronic (3) Nicotine dependence Current Visit: Yes Status: Acute Qualifiers: Nicotine product type: cigarettes Substance use status: in withdrawal Qualified Code(s): F17.213 - Nicotine dependence, cigarettes, with withdrawal (4) Encounter for monitoring Suboxone maintenance therapy Current Visit: Yes Status: Chronic Comment: 24-6 SL DAILY, VERIFIED BY NURSE, LAST DOSE 11/12/16 patient has a "card" for suboxone maintenance progrom, please verify (5) History of asthma Current Visit: Yes Status: Chronic (6) History of hepatitis C Current Visit: Yes Status: Resolved Cleared for Admission [facility] - Detox or Rehab [facility] Level of Care: Medically Managed Detox Regimen/Protocol: Librium [facility] Breath Alcohol Content Breath Alcohol Content: 0 Urine Drug Screen - Results Drug Screen Negative: No Urine Drug Screen Results: ANDI-Cocaine
[2017-02-12] MEDS ORDERED: NICOTINE POLACRILEX 2 MG GUM BC PRN (23:03)
[2017-02-12] MEDS ORDERED: MAGNESIUM CITRATE 300 ML BOTTLE PO PRN (23:03)
[2017-02-12] MEDS ORDERED: MENTHOL/PHENOL 1 EACH UD MM PRN (23:03)
[2017-02-12] MEDS ORDERED: guaiFENesin/D-METHORPHAN HB 10 ML UNIT-DOSE CUPS PO PRN (23:03)
[2017-02-12] MEDS ORDERED: ACETAMINOPHEN 325 MG TABLET (FP) PO PRN (23:03)
[2017-02-12] MEDS ORDERED: MAGNESIUM HYDROX 2400MG/30ML ORAL SUSPENSION 30 ML CUP PO PRN (23:03)
[2017-02-12] MEDS ORDERED: chlordiazePOXIDE HCL 25 MG CAPSULE PO PRN (23:03)
[2017-02-12] MEDS ORDERED: IBUPROFEN 400 MG TABLET (FP) PO PRN (23:03)
[2017-02-12] MEDS ORDERED: LOPERAMIDE HCL 2 MG CAPSULE PO PRN (23:03)
[2017-02-12] MEDS ORDERED: P-EPHED 60MG/TRIPROLIDI 2.5MG TABLET PO PRN (23:03)
[2017-02-12] MEDS ORDERED: MAG HYDROX/AL HYDROX/SIMETH 30 ML UNIT-DOSE CUP PO PRN (23:03)
[2017-02-12] MEDS ORDERED: ALBUTEROL SO4 6.7 GM HFA INHALER IH PRN (23:13)
[2017-02-13 00:43] LABS: URINE APPEARANCE CLEAR; URINE BILIRUBIN NEGATIVE (NEGATIVE); URINE BLOOD NEGATIVE (NEGATIVE); URINE COLOR YELLOW; URINE GLUCOSE (UA) NEGATIVE (NEGATIVE); URINE KETONE NEGATIVE (NEGATIVE); URINE LEUK ESTERASE NEGATIVE (NEGATIVE); URINE NITRITE NEGATIVE (NEGATIVE); URINE PROTEIN NEGATIVE (NEGATIVE)
[2017-02-13] MEDS: chlordiazePOXIDE HCL 25 MG CAPSULE PO SCH ×5 (01:05→22:16)
[2017-02-13] MEDS: diphenhydrAMINE HCL 50 MG CAPSULE PO PRN (01:07)
[2017-02-13 09:54] LABS: MCH 25.5 pg (25.7-33.7); MCHC 31.5 g/dl (32.0-35.9); MEAN PLT VOLUME 9.2 fl (7.5-11.1); PLATELET COUNT 190 K/MM3 (134-434); RDW 14.8 % (11.9-15.9); WHITE BLOOD COUNT 3.9 K/mm3 (4.0-10.0)
[2017-02-13 09:58] LABS: BILIRUBIN,TOTAL 0.8 mg/dL (0.2-1.0); SGOT/AST 21 U/L (15-37); SGPT/ALT 34 U/L (12-78)
[2017-02-13 10:02] LABS: ALBUMIN 3.2 g/dl (3.4-5.0); ALK PHOS 79 U/L (45-117); ANION GAP 3 (8-16); CALCIUM 8.9 mg/dL (8.5-10.1); CO2 32 mmol/L (21-32); CREATININE 1.1 mg/dL (0.7-1.3); GLUCOSE,RANDOM 106 mg/dL (74-106); TOT PROT 6.6 g/dl (6.4-8.2)
[2017-02-13] MEDS: PRENATAL VITAMINS W/ FOLIC ACID TABLET (FP) PO SCH (10:45)
[2017-02-13] MEDS: NICOTINE 14 MG/24 HOURS TOPICAL PATCH TD SCH (10:46)
--- NOTE | 2017-02-13 11:35 | CONSULT ---
[facility] Psychiatric Consult - Data Date of interview: 02/13/17 Admission source: [facility] Identifying data: This is 51 years old AA single father of 1 adult son,resides in longterm,supported by PA admitted to [address] [place] [address] for Alcohol,Opioid (on suboxone) and Cocaine dependence. Substance Abuse History: Reports drinking since 14 years old,1/2 pint of vodka daily,Cocaine and Heroin since young age(requests Suboxone treatment). Medical History: Significant for BA. Psychiatric History: Reports no previous psychiatric history,never been treated but states recently started feeling depressed due to his situation,alcohol,drug abuse.Patient denies suicidal attempts,psychiatric amissions.He is willing to try antidepressants while in detox/rehabilitation treatment . Physical/Sexual Abuse/Trauma History: denies Mental Status Exam - Mental Status Exam Alert and Oriented to: Time, Place, Person Cognitive Function: Grossly Intact Patient Appearance: Unkempt Mood: Depressed, Sad Affect: Mood Congruent Patient Behavior: Appropriate, Cooperative Speech Pattern: Clear Voice Loudness: Normal Thought Process: Goal Oriented Thought Disorder: Not Present Hallucinations: Denies Suicidal Ideation: Denies Homicidal Ideation: Denies Insight/Judgement: Fair Sleep: Fair Appetite: Fair Muscle strength/Tone: Normal Gait/Station: Normal Psychiatric Findings - Problem List (Romeo 1, 2,3) (1) Alcohol dependence with uncomplicated withdrawal Current Visit: Yes Status: Chronic (2) Nicotine dependence Current Visit: Yes Status: Chronic Qualifiers: Nicotine product type: cigarettes Substance use status: in withdrawal Qualified Code(s): F17.213 - Nicotine dependence, cigarettes, with withdrawal (3) Cocaine dependence, uncomplicated Current Visit: Yes Status: Chronic (4) History of asthma Current Visit: Yes Status: Chronic (5) History of hepatitis C Current Visit: Yes Status: Resolved (6) Opioid dependence on agonist therapy Current Visit: Yes Status: Chronic (7) Substance induced mood disorder Current Visit: Yes Status: Chronic - Initial Treatment Plan Initial Treatment Plan: Start Zoloft 50 mg po daily. will monitor progress.
--- NOTE | 2017-02-13 14:16 | PN ---
S CIWA - CIWA Score Nausea/Vomitin Muscle Tremors: 4-Moderate,w/Arms Extend Anxiety: 4-Mod. Anxious/Guarded Agitation: 4-Moderately Restless Paroxysmal Sweats: 3 Orientation: 0-Oriented Tacttile Disturbances: 0-None Auditory Disturbances: 0-None Visual Disturbances: 0-None Headache: 0-None Present CIWA-Ar Total Score: 17 BHS Progress Note (SOAP) Subjective: Anxiety,tremors,sweating,interrupted sleep,restless. Objective: 02/13/17 14:15 Vital Signs - 8 hr 02/13/17 02/13/17 06:23 11:10 Temperature 97.3 F L 97.7 F Pulse Rate 50 L 60 Respiratory 18 17 Rate Blood Pressure 106/70 105/72 Laboratory Tests 02/12/17 02/13/17 02/13/17 23:38 07:50 07:50 WBC 3.9 L RBC 4.82 Hgb 12.3 Hct 39.1 MCV 81.0 MCH 25.5 L MCHC 31.5 L RDW 14.8 Plt Count 190 MPV 9.2 Sodium 140 Potassium 4.0 Chloride 105 Carbon Dioxide 32 Anion Gap 3 L BUN 15 Creatinine 1.1 Creat Clearance w eGFR > 60 Random Glucose 106 D Calcium 8.9 Total Bilirubin 0.8 D AST 21 D ALT 34 D Alkaline Phosphatase 79 D Total Protein 6.6 Albumin 3.2 L Urine Color Yellow Urine Appearance Clear Urine pH 7.0 D Ur Specific [place] 1.025 Urine Protein Negative Urine Glucose (UA) Negative Urine Ketones Negative Urine Blood Negative Urine Nitrite Negative Urine Bilirubin Negative Urine Urobilinogen 2.0 RPR Titer 02/13/17 07:50 WBC RBC Hgb Hct MCV MCH MCHC RDW Plt Count MPV Sodium Potassium Chloride Carbon Dioxide Anion Gap BUN Creatinine Creat Clearance w eGFR Random Glucose Calcium Total Bilirubin AST ALT Alkaline Phosphatase Total Protein Albumin Urine Color Urine Appearance Urine pH Ur Specific [place] Urine Protein Urine Glucose (UA) Urine Ketones Urine Blood Urine Nitrite Urine Bilirubin Urine Urobilinogen RPR Titer Nonreactive labs noted Assessment: 02/13/17 14:15 Withdrawal Sx. Plan: Continue detox
[2017-02-13] MEDS: THIAMINE HCL 100 MG TABLET (FP) PO SCH (22:16)
[2017-02-14] MEDS: diphenhydrAMINE HCL 50 MG CAPSULE PO PRN ×2 (00:54→22:26)
[2017-02-14] MEDS: chlordiazePOXIDE HCL 25 MG CAPSULE PO SCH ×3 (06:00→17:45)
[2017-02-14] MEDS: PRENATAL VITAMINS W/ FOLIC ACID TABLET (FP) PO SCH (10:10)
[2017-02-14] MEDS: NICOTINE 14 MG/24 HOURS TOPICAL PATCH TD SCH (10:10)
[2017-02-14] MEDS: BUPRENORPHINE/NALOXONE 8 MG/2 MG FILM PACKET SL SCH (12:09)
--- NOTE | 2017-02-14 14:46 | PN ---
S CIWA - CIWA Score Nausea/Vomitin Muscle Tremors: 4-Moderate,w/Arms Extend Anxiety: 4-Mod. Anxious/Guarded Agitation: 2 Paroxysmal Sweats: 3 Orientation: 2-Disoriented Date<2 days Tacttile Disturbances: 1-Very Mild Itch/Numbness Auditory Disturbances: 0-None Visual Disturbances: 0-None Headache: 0-None Present CIWA-Ar Total Score: 19 BHS Progress Note (SOAP) Subjective: Interrupted sleep, Sweating, Anxious, Tremors, Diarrhea. Objective: PT. A & O X 2 (DISORIENTED ABOUT DAY / DATE). PT. OBSERVED AMBULATING ON UNIT. NO ACUTE DISTRESS. 02/14/17 14:45 Vital Signs Temperature 97.2 F L 02/14/17 14:33 Pulse Rate 78 02/14/17 14:33 Respiratory Rate 18 02/14/17 14:33 Blood Pressure 119/78 02/14/17 14:33 O2 Sat by Pulse Oximetry (%) Laboratory Tests 02/12/17 02/13/17 02/13/17 23:38 07:50 07:50 WBC 3.9 L RBC 4.82 Hgb 12.3 Hct 39.1 MCV 81.0 MCH 25.5 L MCHC 31.5 L RDW 14.8 Plt Count 190 MPV 9.2 Sodium 140 Potassium 4.0 Chloride 105 Carbon Dioxide 32 Anion Gap 3 L BUN 15 Creatinine 1.1 Creat Clearance w eGFR > 60 Random Glucose 106 D Calcium 8.9 Total Bilirubin 0.8 D AST 21 D ALT 34 D Alkaline Phosphatase 79 D Total Protein 6.6 Albumin 3.2 L Urine Color Yellow Urine Appearance Clear Urine pH 7.0 D Ur Specific [place] 1.025 Urine Protein Negative Urine Glucose (UA) Negative Urine Ketones Negative Urine Blood Negative Urine Nitrite Negative Urine Bilirubin Negative Urine Urobilinogen 2.0 RPR Titer 02/13/17 07:50 WBC RBC Hgb Hct MCV MCH MCHC RDW Plt Count MPV Sodium Potassium Chloride Carbon Dioxide Anion Gap BUN Creatinine Creat Clearance w eGFR Random Glucose Calcium Total Bilirubin AST ALT Alkaline Phosphatase Total Protein Albumin Urine Color Urine Appearance Urine pH Ur Specific [place] Urine Protein Urine Glucose (UA) Urine Ketones Urine Blood Urine Nitrite Urine Bilirubin Urine Urobilinogen RPR Titer Nonreactive LABS NOTED. Assessment: 02/14/17 14:45 WITHDRAWAL SYMPTOMS. Plan: CONTINUE DETOX.
[2017-02-14] MEDS: THIAMINE HCL 100 MG TABLET (FP) PO SCH (22:25)
[2017-02-14] MEDS: chlordiazePOXIDE 5 MG CAPSULE PO SCH (22:26)
[2017-02-15] MEDS: chlordiazePOXIDE 5 MG CAPSULE PO SCH ×3 (05:45→17:13)
[2017-02-15] MEDS: BUPRENORPHINE/NALOXONE 8 MG/2 MG FILM PACKET SL SCH (10:43)
[2017-02-15] MEDS: PRENATAL VITAMINS W/ FOLIC ACID TABLET (FP) PO SCH (10:43)
[2017-02-15] MEDS: NICOTINE 14 MG/24 HOURS TOPICAL PATCH TD SCH (10:44)
--- NOTE | 2017-02-15 17:23 | PN ---
S Progress Note (SOAP) Subjective: Chills, tremor, nausea, diarrhea Objective: 02/15/17 17:22 Last Vital Signs Temp Pulse Resp BP Pulse Ox 96.6 F L 83 20 115/72 02/15/17 13:39 02/15/17 13:39 02/15/17 13:39 02/15/17 13:39 Laboratory Tests 02/12/17 02/13/17 02/13/17 23:38 07:50 07:50 WBC 3.9 L RBC 4.82 Hgb 12.3 Hct 39.1 MCV 81.0 MCH 25.5 L MCHC 31.5 L RDW 14.8 Plt Count 190 MPV 9.2 Sodium 140 Potassium 4.0 Chloride 105 Carbon Dioxide 32 Anion Gap 3 L BUN 15 Creatinine 1.1 Creat Clearance w eGFR > 60 Random Glucose 106 D Calcium 8.9 Total Bilirubin 0.8 D AST 21 D ALT 34 D Alkaline Phosphatase 79 D Total Protein 6.6 Albumin 3.2 L Urine Color Yellow Urine Appearance Clear Urine pH 7.0 D Ur Specific [place] 1.025 Urine Protein Negative Urine Glucose (UA) Negative Urine Ketones Negative Urine Blood Negative Urine Nitrite Negative Urine Bilirubin Negative Urine Urobilinogen 2.0 RPR Titer 02/13/17 07:50 WBC RBC Hgb Hct MCV MCH MCHC RDW Plt Count MPV Sodium Potassium Chloride Carbon Dioxide Anion Gap BUN Creatinine Creat Clearance w eGFR Random Glucose Calcium Total Bilirubin AST ALT Alkaline Phosphatase Total Protein Albumin Urine Color Urine Appearance Urine pH Ur Specific [place] Urine Protein Urine Glucose (UA) Urine Ketones Urine Blood Urine Nitrite Urine Bilirubin Urine Urobilinogen RPR Titer Nonreactive Labs noted Assessment: 02/15/17 17:23 Withdrawal symptoms Plan: Continue detox
[2017-02-15] MEDS: diphenhydrAMINE HCL 50 MG CAPSULE PO PRN (22:16)
[2017-02-15] MEDS: chlordiazePOXIDE HCL 10 MG CAPSULE PO SCH (22:16)
[2017-02-15] MEDS: THIAMINE HCL 100 MG TABLET (FP) PO SCH (22:16)
[2017-02-16] MEDS: chlordiazePOXIDE HCL 10 MG CAPSULE PO SCH ×2 (05:23→10:30)
[2017-02-16 05:59] VITALS: PULSE 80
[2017-02-16] MEDS: PRENATAL VITAMINS W/ FOLIC ACID TABLET (FP) PO SCH (10:30)
[2017-02-16] MEDS: NICOTINE 14 MG/24 HOURS TOPICAL PATCH TD SCH (10:30)
[2017-02-16] MEDS: BUPRENORPHINE/NALOXONE 8 MG/2 MG FILM PACKET SL SCH (10:32)
--- NOTE | 2017-02-16 12:17 | DS ---
[facility] Detox Discharge Summary Admission Date: 02/12/17 Discharge Date: 02/16/17 - History Present History: Alcohol Dependence, Cocaine Dependence, Opioid Dependence Additional Comments: PATIENT GOING TO [facility] ([place], [place] PATIENT ALSO ADVISED TO FOLLOW-UP WITH [facility] PROVIDER AT [facility] FOR FOLLOW-UP AFTER CARE FOR HISTORY OF [facility] MAINTENANCE. Pertinent Past History: Hep C, Asthma, Depression, Suboxone Maintenance. - Physical Exam Results Vital Signs: Vital Signs Temperature 98.1 F 02/16/17 05:58 Pulse Rate 80 02/16/17 05:58 Respiratory Rate 16 02/16/17 05:58 Blood Pressure 103/62 02/16/17 05:58 O2 Sat by Pulse Oximetry (%) Pertinent Admission Physical Exam Findings: WITHDRAWAL SYMPTOMS. Laboratory Tests 02/12/17 02/13/17 02/13/17 23:38 07:50 07:50 WBC 3.9 L RBC 4.82 Hgb 12.3 Hct 39.1 MCV 81.0 MCH 25.5 L MCHC 31.5 L RDW 14.8 Plt Count 190 MPV 9.2 Sodium 140 Potassium 4.0 Chloride 105 Carbon Dioxide 32 Anion Gap 3 L BUN 15 Creatinine 1.1 Creat Clearance w eGFR > 60 Random Glucose 106 D Calcium 8.9 Total Bilirubin 0.8 D AST 21 D ALT 34 D Alkaline Phosphatase 79 D Total Protein 6.6 Albumin 3.2 L Urine Color Yellow Urine Appearance Clear Urine pH 7.0 D Ur Specific [place] 1.025 Urine Protein Negative Urine Glucose (UA) Negative Urine Ketones Negative Urine Blood Negative Urine Nitrite Negative Urine Bilirubin Negative Urine Urobilinogen 2.0 RPR Titer 02/13/17 07:50 WBC RBC Hgb Hct MCV MCH MCHC RDW Plt Count MPV Sodium Potassium Chloride Carbon Dioxide Anion Gap BUN Creatinine Creat Clearance w eGFR Random Glucose Calcium Total Bilirubin AST ALT Alkaline Phosphatase Total Protein Albumin Urine Color Urine Appearance Urine pH Ur Specific [place] Urine Protein Urine Glucose (UA) Urine Ketones Urine Blood Urine Nitrite Urine Bilirubin Urine Urobilinogen RPR Titer Nonreactive LABS NOTED. - Treatment Hospital Course: Detox Protocol Followed, Detoxed Safely, Responded well, Discharged Condition Good Patient has Accepted a Rehab Referral to: [facility]; [facility]. - Diagnosis (1) Alcohol dependence with uncomplicated withdrawal Current Visit: Yes Status: Acute (2) Cocaine dependence, uncomplicated Current Visit: Yes Status: Chronic (3) Encounter for monitoring Suboxone maintenance therapy Current Visit: Yes Status: Chronic (4) History of asthma Current Visit: Yes Status: Chronic (5) Nicotine dependence Current Visit: Yes Status: Chronic Qualifiers: Nicotine product type: cigarettes Substance use status: in withdrawal Qualified Code(s): F17.213 - Nicotine dependence, cigarettes, with withdrawal (6) Opioid dependence on agonist therapy Current Visit: Yes Status: Chronic (7) Substance induced mood disorder Current Visit: Yes Status: Chronic (8) History of hepatitis C Current Visit: Yes Status: Chronic - AMA Did Patient Leave Against Medical Advice: No
[2017-02-16 13:33] VITALS: BP 114/68; TEMP 98.2
--- NOTE | 2017-02-16 17:04 | EKG ---
Test Reason : Blood Pressure : / mmHG Vent. Rate : 046 BPM Atrial Rate : 046 BPM P-R Int : 150 ms QRS Dur : 088 ms QT Int : 426 ms P-R-T Axes : 068 086 045 degrees QTc Int : [address] ELEVATION, CONSIDER EARLY REPOLARIZATION BORDERLINE ECG WHEN COMPARED WITH ECG OF 13-NOV-2016 19:25, NO SIGNIFICANT CHANGE WAS FOUND Confirmed by TIERRA DAS MD ([id number]) on 02/16/2017 5:03:52 PM Referred By: Confirmed By:TIERRA DAS MD
== END 2017-02-16 15:40 | disposition home or self-care (01) | DRG 773 ==
LOC: YASAS 20:05 → Y3N 22:53
PROVIDERS: ADMIT Internal Medicine; ATTEND Internal Medicine
PROC: HZ2ZZZZ Detoxification Services for Substance Abuse Treatment (ICD-10-PCS; principal; 2017-02-12)
DX: F11.20 Opioid dependence, uncomplicated (principal); F10.230 Alcohol dependence with withdrawal, uncomplicated; F19.24 Other psychoactive substance dependence with psychoactive substance-induced mood disorder; B18.2 Chronic viral hepatitis C; J45.909 Unspecified asthma, uncomplicated; Z59.0 Homelessness
CPT/HCPCS: 36415; 80053; 81003; 85027; 86593; 93005; 93010